=== PATIENT | female | born 1930 | race Caucasian/White ===

== ENCOUNTER 2017-05-12 17:55 | Emergency (ER) | payer OTHER ==
[~2017-05-12] VITALS: Ht 167.6 cm; Wt 81.7 kg
[2017-05-12 17:58] VITALS: BP 150/65
[2017-05-12] MEDS ORDERED: ATIVAN0.5 MG PO ×2 (18:46→18:51)
[2017-05-12] MEDS ORDERED: ULTRAM50 MG PO (18:46)
[2017-05-12] MEDS ORDERED: RESTASIS1 EACH OPHTHALMIC (18:46)
[2017-05-12] MEDS ORDERED: FLONASE 0.05%50 MCG NASAL (18:47)
[2017-05-12] MEDS ORDERED: GABAPENTIN 100100 MG PO (18:47)
[2017-05-12] MEDS ORDERED: AMLODIPINE BESY10 MG PO (18:48)
[2017-05-12] MEDS ORDERED: OMEPRAZOLE 20 M20 MG PO (18:48)
[2017-05-12] MEDS ORDERED: HYDRALAZINE 2525 MG PO (18:49)
[2017-05-12] MEDS ORDERED: ATORVASTATIN CA40 MG PO (18:49)
[2017-05-12] MEDS ORDERED: NAMENDA 10 MG T10 MG PO (18:49)
[2017-05-12] MEDS ORDERED: FLOMAX0.4 MG PO (18:50)
[2017-05-12] MEDS ORDERED: CARVEDILOL12.5 MG PO (18:50)
[2017-05-12] MEDS ORDERED: MIRALAX17 GM PO (18:50)
== END 2017-05-12 18:56 | disposition home or self-care (01) ==
LOC: ER 17:55
DX: H11.31 Conjunctival hemorrhage, right eye (principal); I10 Essential (primary) hypertension; F03.90 Unspecified dementia, unspecified severity, without behavioral disturbance, psychotic disturbance, mood disturbance, and anxiety; K21.9 Gastro-esophageal reflux disease without esophagitis; F41.9 Anxiety disorder, unspecified; G62.9 Polyneuropathy, unspecified; Z88.1 Allergy status to other antibiotic agents; Z88.8 Allergy status to other drugs, medicaments and biological substances